=== PATIENT | male | born 1945 | race Two or more races ===

== ENCOUNTER 2020-04-11 14:50 | Emergency (ER) | payer BC, MEDICARE ==
--- NOTE | 2020-04-11 15:44 | ER Document Report ---
ED Medical Screen (RME) - General Chief Complaint: Abscess Stated Complaint: ABSCESS/LEFT ARM Time Seen by Provider: 04/11/20 15:38 Primary Care Provider: LYLA QIU [Primary Care Provider] - Follow up as needed Notes: Patient is a 74-year-old male who presents emergency department with a chief complaint in with an abscess to his left upper arm. Patient states that he first noticed it about nursing home through February. He states that he has been using a sterilized needle to open the area. States that pus is coming out of the area. He did not have the area checked due to the COVID-19 pandemic. States that the area is getting bigger. Exam: Abscess noted to left upper arm with surrounding erythema. I have greeted and performed a rapid initial assessment of this patient. A comprehensive ED assessment and evaluation of the patient, analysis of test results and completion of medical decision making process will be conducted by an additional ED providers. - Related Data Allergies/Adverse Reactions: Penicillins Allergy (Verified 04/11/20 15:38) Physical Exam - Vital signs Vitals: Temp Pulse Resp BP Pulse Ox 99.0 F 82 20 111/78 96 04/11/20 15:24 04/11/20 15:24 04/11/20 15:24 04/11/20 15:24 04/11/20 15:24 Course - Vital Signs Vital signs: Temp Pulse Resp BP Pulse Ox 99.0 F 82 20 111/78 96 04/11/20 15:24 04/11/20 15:24 04/11/20 15:24 04/11/20 15:24 04/11/20 15:24 Doctor's Discharge - Discharge Referrals: LYLA QIU [Primary Care Provider] - Follow up as needed
[2020-04-11] MEDS ORDERED: LIDOCAINE 1%/EPINEPHRINE INJ 20 ML VIAL INJ ONE (20:17)
--- NOTE | 2020-04-11 20:18 | ER Document Report ---
ED Skin Rash/Insect Bite/Abscs - General Chief Complaint: Abscess Stated Complaint: ABSCESS/LEFT ARM Time Seen by Provider: 04/11/20 15:38 Primary Care Provider: [facility] [Provider Group] - Follow up in 3-5 days Notes: Patient is a 74-year-old male that comes emergency department for chief complaint of an abscess to his left upper arm. He states that this is been intermittently worse over the past several weeks and he cannot get rid of it. He states he opened it twice with a small needle but both times it returned. He did get a small amount of pus drainage out of it a couple of different times. He denies spreading redness or weight from the area, any other areas of pain, fever/chills, nausea/vomiting. He denies history of the same. He is not a diabetic. He takes no daily medications. He does follow with primary care but states they were too full to see him so he came here for treatment. - Related Data Allergies/Adverse Reactions: Penicillins Allergy (Verified 04/11/20 15:38) Past Medical History - General Information source: Patient - Social History Smoking Status: Current Every Day Smoker Chew tobacco use (# tins/day): No Frequency of alcohol use: None Drug Abuse: None Lives with: Family Family History: Reviewed & Not Pertinent Patient has homicidal ideation: No Endocrine Medical History: Reports: Hx Diabetes Mellitus Type 2 Review of Systems - Review of Systems Constitutional: No symptoms reported EENT: No symptoms reported Cardiovascular: No symptoms reported Respiratory: No symptoms reported Gastrointestinal: No symptoms reported Genitourinary: No symptoms reported Male Genitourinary: No symptoms reported Musculoskeletal: No symptoms reported Skin: See HPI Hematologic/Lymphatic: No symptoms reported Neurological/Psychological: No symptoms reported Physical Exam - Vital signs Vitals: Temp Pulse Resp BP Pulse Ox 99.0 F 82 20 111/78 96 04/11/20 15:24 04/11/20 15:24 04/11/20 15:24 04/11/20 15:24 04/11/20 15:24 - Notes Notes: GENERAL: Alert, interacts well. No acute distress. HEAD: Normocephalic, atraumatic. EYES: Pupils equal, round, and reactive to light. Extraocular movements intact. ENT: Oral mucosa moist, tongue midline. Oropharynx unremarkable. Airway patent. NECK: Full range of motion. Supple. Trachea midline. No lymphadenopathy. LUNGS: Clear to auscultation bilaterally, no wheezes, rales, or rhonchi. No respiratory distress. Non-tender chest wall. HEART: Regular rate and rhythm. No murmur ABDOMEN: Soft, non-tender. Non-distended. EXTREMITIES: Moves all 4 extremities spontaneously. No edema, normal radial and dorsalis pedis pulses bilaterally. No cyanosis. See skin note. BACK: no cervical, thoracic, lumbar midline tenderness. No saddle anesthesia, normal distal neurovascular exam. Moves all extremities in full range of motion. NEUROLOGICAL: Alert and oriented x3. Normal speech. Cranial nerves II through XII grossly intact. Strength 5/5 in all extremities. PSYCH: Normal affect, normal mood. SKIN: There is a circular area in the mid lateral proximal arm with erythema, induration, but no obvious fluctuant head. There is some mild surrounding erythema but no streaking away from the site. Tenderness over the exact area but no tenderness otherwise. Normal shoulder and elbow exam, normal distal neurovascular exam. Course - Re-evaluation Re-evalutation: Patient with an obvious abscess with some mild surrounding cellulitis. Area was drained, this was clearly a sebaceous cyst and a lot of drainage was expressed. This was packed after discussion with patient. Discussed care, return for additional management, and return precautions in detail. Patient states appreciation and agreement. - Vital Signs Vital signs: Temp Pulse Resp BP Pulse Ox 98.4 F 66 14 159/71 H 97 04/11/20 21:58 04/11/20 21:58 04/11/20 21:58 04/11/20 21:58 04/11/20 21:58 Procedures - Incision and Drainage Left arm Type: Single Anesthetic type: 1% Lidocaine w/epi mL's of anesthetic: 7 Blade size: 11 I&D procedure: Shurclens applied, Iodoform packing placed, Sterile dressing applied Incision Method: Incision made by scalpel Amount/type of drainage: Large amount of cheesy/purulent drainage Discharge - Discharge Clinical Impression: Abscess of left arm Disposition: HOME, SELF-CARE Additional Instructions: Your evaluation showed an infected sebaceous cyst, this has been drained and packed. Please remove the packing in 2 days or have this rechecked in 2 days for packing removal. Keep the area clean, clean with soap and water, keep absorbent dressing over the area. Take the antibiotics as prescribed. Return for any concerning or worsening symptoms including spreading redness, spiking fever, swelling of your arm, or any other concerning symptoms. Prescriptions: Sulfamethoxazole/Trimethoprim [Bactrim Ds Tablet] 1 each PO BID #14 tablet Cephalexin Monohydrate [Keflex 500 mg Capsule] 500 mg PO QID #28 capsule Referrals: [facility] [Provider Group] - Follow up in 3-5 days
[2020-04-11] MEDS ORDERED: SULFAMETHOXAZOLE/TRIMETHOPRIM 800-160 MG TABLET PO ONE (21:37)
[2020-04-11] MEDS ORDERED: CEPHALEXIN 500 MG CAPSULE PO ONE (21:37)
[2020-04-11 22:00] VITALS: BP 159/71
== END 2020-04-11 22:00 | disposition home or self-care (01) ==
LOC: ER 14:50
DX: L02.414 Cutaneous abscess of left upper limb (principal); L03.114 Cellulitis of left upper limb; F17.200 Nicotine dependence, unspecified, uncomplicated; Z88.0 Allergy status to penicillin
CPT/HCPCS: 99282; 10060; J3490